=== PATIENT | female | born 1940 | race Caucasian/White ===

== ENCOUNTER 2019-06-10 22:21 | Inpatient (IN) | payer OTHER, BC ==
[~2019-06-10] VITALS: Ht 162.6 cm; Wt 47.3 kg
[2019-06-11 02:08] VITALS: BP 157/61
--- NOTE | 2019-06-11 02:44 | NUR ---
06/10/19 at 2205. Pt. received from [facility] via non-emergent ambulance. Pt. transferred from [facility] to bed with assist of 3. Pt. is weak and states that she has not walked in 30 days. Pt. was then assisted to [facility] with assist of 2. Pt.'s body was limp while we were attempting to transfer her. She would not follow commands either. We sat pt. back on bed to start over. Simple directions given and countdown done before second attempt to lift patient and transfer to BS. Pt. was moderate assist with 2 and followed directions better with second attempt. Pt. was anxious, angry, labile, hostile, and uncooperative at times during assessment. She signed consent form for treatment but states, "I'm leaving here tomorrow"! Pt. was angry that she did not have a TV and angry that she did not have a private room. She states that the addiction social worker at promised her these things. Overall policies of unit explained to patient. Dr. Lovett called and notified of patient's admission and behaviors. Orders given for Ativan 0.5 mg. PO x1 now, Remeron 30mg. at hs, and Tramadol 25 mg. po prn q 8 hrs. All 3 of these medications given to patient. She continued to make multiple demands and would at times yell down the avendaño making these demands. Patient in next bed complained of noise patient was making. Another discussion was had with patient regarding being cooperative in group setting, letting medications help with moods/behaviors, and try to get some sleep. Pt. finally appeared to be sleeping at approximately 0230. Pt. c/o pain to both sides of her neck and numbless to both hands but states that these are long-standing conditions and not a new onset or worsening. Assessment completed and patients appears to be sleeping with eyes closed and respirations even and non-labored. NO signs or symptoms of distress noted.
[2019-06-11] MEDS ORDERED: TRAMADOL 50 MG50 MG PO (03:39)
[2019-06-11] MEDS ORDERED: CYMBALTA30 MG PO (03:40)
[2019-06-11] MEDS ORDERED: ATIVAN0.5 M1 PO ×2 (03:41→03:43)
[2019-06-11] MEDS ORDERED: REMERON30 MG PO (03:44)
[2019-06-11] MEDS ORDERED: NORVASC10 MG PO (03:45)
[2019-06-11] MEDS ORDERED: LIPITOR 40 MG T40 M1 PO (03:46)
[2019-06-11] MEDS ORDERED: BUSPIRONE HCL10 MG PO ×2 (03:47→03:48)
[2019-06-11] MEDS ORDERED: COLACE100 MG PO (03:47)
[2019-06-11] MEDS ORDERED: CELEBREX 200 M200 M1 PO (03:49)
[2019-06-11] MEDS ORDERED: ARTIFICIAL TEAR1510 OPHTHALMIC (03:50)
[2019-06-11] MEDS ORDERED: DEPAKOTE 250MG250 M1 PO (03:51)
[2019-06-11] MEDS ORDERED: PEPCID20 MG PO (03:54)
[2019-06-11] MEDS ORDERED: VITAMIN D31 ML PO (03:54)
[2019-06-11] MEDS ORDERED: FOLIC ACID1 MG PO (03:56)
[2019-06-11] MEDS ORDERED: FEOSOL325 M1 PO (03:56)
[2019-06-11] MEDS ORDERED: PROBIOTIC1 EAC7 PO (03:57)
[2019-06-11] MEDS ORDERED: PRINIVIL20 M1 PO (03:59)
[2019-06-11] MEDS ORDERED: TOPROL XL25 MG PO (04:00)
[2019-06-11] MEDS ORDERED: CARAFATE1 GM PO (04:01)
[2019-06-11 07:26] VITALS: BP 162/53
--- NOTE | 2019-06-11 12:17 | NUR ---
Sw spoke with Roland son and completed the intake assessment and TP. This included social HX. Pt has lived at [facility] in [facility] for a few years and spent the last 30 days at [facility]. Pt is not allowed ot return to [place]. Pt has [place] medicaid and it was reported that she wants to go to an AL, and have $3000 for this. Pt does not do well with roommates. pt scored 14/30 on the SLUMS and a SLIME is being ordered.
--- NOTE | 2019-06-11 15:07 | NUR ---
UPON INITIAL APPROACH THIS AM WAS SITTING INDAYRROM IN WC WITH HEAD ON TABLE AND HANDS COVERING HEAD-INITALLY REFUSING TO [facility] NURSING STAFF WITH ATTEMPTS TO COMMUNICATE WITH HER-REFUSES TO EAT BREAKFAST OR EVEN HOLD HEAD UP FOR ASSESSMENT-VS OBTAINED AND ARE WNL. APPROX 5 MINUTES LATER APPROACHED WITH AM MEDICATIONS AND AGAIN REFUSES TO HOLD HEAD UP OR [facility]LE[facility] NURSING BUT DID STATE "NO I DON'T WANT THEM" DID AGREE TO GO TO MD OFFICE APPROX 10 MINUTES LATER AND SPOKE WITH MD-AT 1000 REPORTED NECK PAIN RATED A 8 ON 1-10 SCALE. ULTRAM 25 MG GIVEN ALONG WITH 0900 CELEBREX-REQUESTING "MY NERVE MEDICINE" I AM ABOUT TO JUMP OUT OF MY SKIN. ATIVAN 0.5MG GIVEN PO PRN AT APPROX 1015
--- NOTE | 2019-06-11 18:00 | NUR ---
HAS BEEN VISIBLE IN DAYROOM THROUGHOUT MAJORITY OF SHIFT- MORE COOPERATIVE DAY HAS PROGRESED AND WORKED AT [facility] WITH BOTH PT AND OT TODAY- REQUIRES ASSIST OF 1 STAFF TO PIVOT TRANSFER FROM WC TO COMMODE/BED. DID EAT WELL FOR LUNCH AND DINNER SINCE APPROX 1000 HAS TAKEN MEDS SCHEDULED. REPORTS IMPROVED NECK PAIN AFTER AM ULTRAM 25 RATING PAIN A 2-3 AT 1200. DID DO RT GROUP-ASKED THIS RN DURING 1;1 "DO MY CHILDREN KNOW I AM HERE" AND STATES "THE ONLY REASON I AM HERE IS BECAUSE I NEEDED TO GET OUT OF THAT PLACE" LABILE MOOD. RESPONSES ARE ABRUPT/DEFENSIVE AT TIMES BUT RELEVENT TO QUESTION ASKED.
[2019-06-11 19:30] VITALS: BP 128/50
[2019-06-12 06:33] LABS: HEMATOCRIT 30.6 % (37.0-47.0); MCH 28.9 pg (26.0-34.0); MCHC 32.6 g/dL (28.0-37.0); MCV 88.8 fL (80.0-100.0); PLATELET COUNT 337 thou/uL (150-400); RBC 3.45 mil/uL (4.20-5.00); RDW 17.3 % (10.5-14.5); WBC 5.9 thou/uL (4.0-11.0)
[2019-06-12 06:47] LABS: CALCIUM 8.5 mg/dL (8.5-10.1); POTASSIUM 4.5 mmol/L (3.5-5.1)
--- NOTE | 2019-06-12 07:02 | NUR ---
ASSUMED CARE ON 06/11/19 @ 1900, SITTING IN THE DAY ROOM. COOPERATED WITH ASSESSMENT AND COMPLIANT WITH MEDS. SLEPT 7.4 HOURS OVERNIGHT.
[2019-06-12 07:30] VITALS: BP 153/70
[2019-06-12 08:32] LABS: ABSOLUTE NEUTROPHILS 2.8 thou/uL (1.4-8.2)
[2019-06-12 08:33] LABS: PLATELET ESTIMATE NORMAL
--- NOTE | 2019-06-12 08:48 | NUR ---
RT progress note- Patient exhibits poor attention/concentration and does not allow staff to interact with him for long periods of time. Attempts to intervene from wandering/exit seeking behavior include reading a bible, working puzzles, and listening to music, none of which patient tolerates for more than a few minutes at a time. He continues to only verbalize a few words at a time during interaction.
--- NOTE | 2019-06-12 13:45 | NUR ---
PATIENT LYING IN BED REFUSES MEDICATION, STATES "I DON'T NEED MY MEDICATION, I WON'T LIVE LONG". I AM NOT GONNA EAT AND WILL SOON". AFTER WIRTER ASKS WHAT HAS HER SO UPSET PATIENT STATES SHE IS MAD. PA=TIENT STATES "I DO NOT LIKE IT HERE". WILL CONTINUE TO OBSERVE.
--- NOTE | 2019-06-12 14:10 | NUR ---
Violet contacted [facility] and spoke with the SW in the AL to confirm her previous placement there. Pt now needs SNF.
--- NOTE | 2019-06-12 18:52 | NUR ---
1819 PATIENT C/O BEING NERVOUS, ATIVAN 0.[address] DELGADO HERE AND MATCH UP PERSON NOTIFIED DR. PATIENT SPOKE WITH SON AND THEN THREW PHONE. PATIENT STATES NERVES ARE ALL OVER AND FEELS LIKE THEY ARE GONNA EXPLODE. PATIENT SITTING IN GERICHAIR AT THE TIME. WILL CONTINUE TO OBSERVE.
[2019-06-12 19:13] VITALS: BP 135/46
[2019-06-13 01:07] LABS: GLYCOHEMOGLOBIN (HGB A1C) 5.4 % (4.8-5.6)
[2019-06-13 01:14] VITALS: BP 135/46
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
--- NOTE | 2019-06-13 08:59 | NUR ---
0700 ASSUMED CARE OF PATIENT, PATIENT SITTING IN DAYROOM. MEDICATION TAKEN WHOLE IN YOGURT WITHOUT DIFFICULTY. DENIES OTHER NEEDS.
[2019-06-13 10:42] VITALS: BP 147/59
--- NOTE | 2019-06-13 13:59 | NUR ---
Sw met with pt and she stated that she understood she needd to be in rehab and then likely LTC. She wanted to stay in [facility], SW sent referal to [facility], and [facility] [place], and [facility].
--- NOTE | 2019-06-13 18:06 | NUR ---
NO C/O BEING NERVOUS FROM PATIENT. PATIENT STATES "I AM GONNA TRY TO DO MY BEST AND GET BETTER". PATIENT HAS BEEN CALM AND COOPERATIVE. PATIENT EATING MEALS AND NOT REFUSING MEDICATIONS. PATIENT SITTING IN DAYROOM WATCHING TV AND DOING CROSSWORD PUZZLES FOR ENTERTAINMENT. SAFETY PRECATIONS IN PLACE, WILL CONTINUE TO MONITOR.
[2019-06-13 19:27] VITALS: BP 139/61
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
[2019-06-13 23:36] VITALS: BP 139/61
--- NOTE | 2019-06-14 02:12 | NUR ---
Assumed care of patient at change of shift. Pt. in W/C sitting at a table in dining room. She was watching TV and other patients but was not interacting with peers or staff. She would answer questions when asked. Assessment completed. Pt was calm and cooperative. She is a/oX4. Pt. was discussing her discharge plan in detail. She took medications in applesauce and then followed this with cup full of water. No coughing or choking noted after swallowing.
--- NOTE | 2019-06-14 09:23 | NUR ---
ASSUMED CARE AT 0700 THIS MORNING. SHE WAS IN BED AND GOTTEN UP BY [employer]. SHE CONTINUES TO BE CONTROLLING, IRRITABLE. SHE EXPECTS STAFF TO DO EVERYTHING FOR HER, EVEN FEED HER. STAFF INFORMED HER SHE NEEDS TO FEED HERSELF, WHICH SHE DID. SHE WAS COMPLAINING THAT NIGHT STAFF IS TAKING HER THINGS IN THE NIGHT. SHE COMPLAINED THEY TOOK HER GLASSES. THERE IS A PAIR OF GLASSES AT THE NURSES STATION BUT THE PT. STATES THESE ARE NOT HERS. WILL CONTINUE TO BE ON THE LOOK OUT FOR THE GLASSES OF HER. SHE TOOK HER MEDICATIONS WITHOUT DIFFICULTY.
[2019-06-14 09:47] VITALS: BP 188/63
[2019-06-14 11:59] VITALS: BP 188/63
[2019-06-14 12:07] VITALS: BP 188/63
[2019-06-14 12:22] VITALS: BP 188/63
--- NOTE | 2019-06-14 17:12 | NUR ---
SW met with patient 1:1 in lieu of group due to COVID-19 restrictions. Patient was responsive and engaged. She expressed being upset because she believes someone stole her glasses and staff has been unable to find them. She expressed some worry about where she would go upon discharge because she is weak and has loss much of her strength after being hospitalized for one month. SW provided support and assured her discharge plans would be discussed with her prior to her discharge.
[2019-06-14 19:34] VITALS: BP 128/48
--- NOTE | 2019-06-15 00:33 | NUR ---
Assumed care of patient this pm shift. Patient in good spirits but has appare ntly misplaced her reading glasses. Patients son called and requested that [facility] try to find her glasses. RN got patients prescription glasses out of the storage locker. Patient was very pleased. Patient states she has pain in her low back and in her neck on both sides. Patients assessment shows clear breath sounds, active bowel sounds, and s1 s2 heard with auscultation. Patient had a large bm this evening. Patient is alert and oriented x4. We will continue to monitor.
[2019-06-15 07:33] VITALS: BP 145/68
--- NOTE | 2019-06-15 10:07 | NUR ---
Assumed care at 0700. Ate breakfast, took meds in softened ice cream. Wants Senna-Docusate held for tomorrow AM due to abdominal cramping with BM. Pt. denies SI/HI/AH/VH. No delusional content to speech. She is polite. Pt. says she stills feels anxious and wishes she could have Ativan 1 mg. twice a day for her anxiety. Lungs clear, HR regular, no ankle edema.
--- NOTE | 2019-06-15 13:29 | NUR ---
Ate lunch w/o difficulty. Wishes she had more veggies to eat. Pleasant, cordial, polite. No offered issues/complaints. Able to verbalize concerns in an articulate way to make her needs known.
--- NOTE | 2019-06-15 18:00 | NUR ---
Pt. wants Immodium for loose stools. Has had total of 2 reported soft mushy stools. Wants to be transferred to [facility]. Pleasant, compliant with meds. Call placed to Dr. Reid at 1800 to request Immodium.
[2019-06-15 19:58] VITALS: BP 120/47
[2019-06-16 00:54] VITALS: BP 120/47
--- NOTE | 2019-06-16 01:40 | NUR ---
PATIENT IS A/0X3. SHE SITS IN A WC AND NEED 1-2 PEOPLE TO ASSIST HER. SHE HAS BEEN C/O NECK/SHOULDER PAIN THAT WAS RELIEVED WITH TYLENOL 1000MG WITH HS PILLS TONIGHT. DICLOFENAC CREAM TO NECK AND SHOULDERS EASED PAIN THAT WAS 5/10. PT HAS BEEN ASSISTED TO HER BSC TO VOID URINE WITHOUT ISSUE. PATIENT IS SLEEPING AT THIS TIME. SHE IS VERY VOCAL AND ABLE TO VOICE HER NEEDS. BED IN LOW POSTION AND BED ALARM ON. CONTINUING TO MONITOR.
[2019-06-16 07:30] VITALS: BP 131/58
--- NOTE | 2019-06-16 08:07 | NUR ---
Assumed care at 0700. Pt. up ready for and started eating breakfast. she tends to want to eat by herself.
[2019-06-16 16:45] VITALS: BP 131/58
--- NOTE | 2019-06-16 16:51 | NUR ---
SW followed up on referrals faxed for SNF. [facility] is not accepting new admissions due to COVID-19. DG declined stating unable to meet her needs. Left message with Kelp Gatherer Ale[facility] at [facility] asking for return call regarding referral decision.
--- NOTE | 2019-06-16 17:05 | NUR ---
Pt. wants Bentyl for her abdomen to help with abdominal cramps. She admitted to being more at ease about her upcoming housing arrangements after talking with psychiatrist. She is fearful about next door pt. coming in her room and taking her glasses/dentures which are hidden in locations of pt's. choosing.
--- NOTE | 2019-06-16 17:13 | NUR ---
CAROLE received a return call from Laceworker Alejo with [facility]. He informed he did not receive referral. CAROLE faxed referral directly to Alejo for consideration.
--- NOTE | 2019-06-16 17:51 | NUR ---
SW faxed referrals to [facility], [facility], and [facility].
[2019-06-16 19:19] VITALS: BP 120/54
[2019-06-16 20:00] VITALS: BP 120/54
[2019-06-17 09:46] VITALS: BP 144/55
[2019-06-17 10:45] VITALS: BP 108/40
--- NOTE | 2019-06-17 11:41 | NUR ---
RT progress note- Sadia prefers to be independent in leisure at this time. She tolerates social interaction from staff only. She requests word searches daily. She is very discharge focused and speaks about wanting to settle in to her new home rather than being hospitalized. She does not display any adverse behaviors during RT interaction.
--- NOTE | 2019-06-17 12:10 | NUR ---
Pt. assessed at approximately 0940. States she is upset because she feels like noone cares for her here. When asked why she stated that she felt she wasn't listened to when asking to change lunch menu. Alert and orientated X4. States she attempted to harm herself d/t not wanting to stay at long term d/t COVID. Denies SI/HI. Alert and cooperative. Breath sounds clear t/o. Reg HR auscultated. Color pale pink with brisk capillary refill and palpable peripheral pulses. Active bowel sounds over soft, rounded abdomen. Small amt erythema between buttocks, paste applied. Placed on bed to look at buttocks, able to assist with R side, L side weak. Pt. states she is weak d/t stroke in the past. 1146 Pt. found outside door lying on floor by therapist Arpita Garcia. Pt. states she was trying to close door to room when she slipped out of WC and fell on floor. Hematoma to left scalp 1 cm X2 cm. Placed back in WC. VS as recorded. Remains alert and orientated. No s/o distress. Brought back to dining room. Working on word puzzles. Dr. Gamino and Dr. Lovett notified, here assessing pt. Gave ice pack to place on hematoma. 1220 Sitting at table eating lunch. No s/o distress.
--- NOTE | 2019-06-17 14:07 | NUR ---
Pt was denied at [facility], after a lengthy discussion with their admissions coordiantor.
--- NOTE | 2019-06-17 14:54 | NUR ---
SW sent updates to [facility]
[2019-06-17 16:16] VITALS: BP 118/52
[2019-06-17 19:56] VITALS: BP 128/37
--- NOTE | 2019-06-18 00:25 | NUR ---
Pt. has small bump and bruise on left side of forehead that is approximately 2 cm x 3cm and raised. At start of shift patient denied pain. No nuerological symtpoms noted. Pt. denies any new symptoms to hands or feet. Pt. was in W/C in the dining room. She can move W/C with her feet. She cannot hold anything long distance.
--- NOTE | 2019-06-18 00:53 | NUR ---
Pt. wheeling herself in W/C using her legs. She sits forward in chair with an "odd" posture. She has scoliosis and kyphosis that is visible. Pt. c/o pain. Biofreeze applied to neck and upper back and gave patient some relief. She continues to c/o mild pain of
[2019-06-18 05:57] VITALS: BP 128/37
[2019-06-18 07:26] VITALS: BP 121/57
[2019-06-18 08:10] VITALS: BP 121/57
--- NOTE | 2019-06-18 08:18 | NUR ---
PT SITTING OUT IN DINING ROOM. PT ABLE TO FEED SELF. PT COMPLAINED OF NECK PAIN AND LOWER BACK PAIN OF 10. PT STATED SHE HAS ISSUES WITH HER BACK. PT REQUESTING MEDICATION FOR HER STOMACH, BENTYL. PT ABLE TO TAKE MEDS WHOLE IN YOGART.
--- NOTE | 2019-06-18 12:37 | NUR ---
Sw met with pt and she described feeling frustrated that sh was still here. Violet then sent referrals to [facility], [facility], and Samira LA[facility]
--- NOTE | 2019-06-18 12:45 | NUR ---
Violet sent referral to [facility] , [facility] too
--- NOTE | 2019-06-18 14:10 | NUR ---
CALLED DR. SIDHU ABOUT BENTAL MEDICATION. FOUND ON [facility] SHEET IT WAS PRN FOR CRAMPING.
--- NOTE | 2019-06-18 18:12 | NUR ---
ADM BENTYL 20MG PO FOR COMPLAINTS OF CRAMPING TO STOMACH.
[2019-06-18 19:31] VITALS: BP 146/62
--- NOTE | 2019-06-18 23:13 | NUR ---
Assumed care on 06/18/19 @ 19:15, seated in the day room socializing with peers and watching tv. cooperaed with assessment. Hrrr, Lungs cta bilat, abd N b.s. denies bm today wants laxative. Scheduled stool softener provided with HS medications. Trying to transfer self without assistance to toilet. Reminded by staff of being a fall risk and needing to let staff assist her and she fussed at staff and was uncooperative with safety protocol. Assisted back to bed x2 assist due to uncooperative behavior of patient. Diclofenase cream applied to back and neck for pain. In bed, eyes closed, respirations even and unlabored, bed in low position, bed alarm set.
--- NOTE | 2019-06-19 07:34 | NUR ---
ADM BENTYL 20MG PO FOR COMPLAINTS OF CRAMPING TO ABD.
--- NOTE | 2019-06-19 08:25 | NUR ---
PT SITTING OUT IN DINING ROOM. PT ABLE TO TAKE MEDS WITH YOGART. PT STATED SHE HAS SOME PAIN TO RT SIDE OF NECK AND LOWER BACK OF 10 ON 1-10 SCALE. PT HAS NOT OTHER COMPLAINTS AT THIS TIME.
[2019-06-19 08:30] VITALS: BP 147/66
--- NOTE | 2019-06-19 10:10 | NUR ---
PT IN ROOM LYING DOWN IN BED. PT WANTING TO TALK TO THE NURSE. PT STATED SHE WANTED THE NURSE TO CHECK FOR IMPACTION. PT STATED SHE WILL DO IT HERSELF IF SHE HAD A GLOVE. PT STATED SHE HAD A COUPLE OF SMALL STOOLS LAST NIGHT. PT UPSET AND STATED SHE WILL HERE, ENCOURAGED PT THAT SHE WILL NOT THAT THIS IS TEMP. STAY. PT NOT VERY HAPPY WITH BEING HERE, FEELS LIKE HER INDEPENDANCE IS LESS BEING HERE. PT ABLE TO PROPEL SELF IN W/C, PT NEEDS MINIMAL ASSIST TO BSC OR TO W/C.
--- NOTE | 2019-06-19 12:04 | NUR ---
PT JUST GOT TO DINING ROOM TO EAT. PT STATED SHE IS HAVING A BM AT THIS TIME. PT ASSISTED TO ROOM WITH STAFF TO USE BSC.
--- NOTE | 2019-06-19 12:06 | NUR ---
CAROLE sent referral to [facility]
--- NOTE | 2019-06-19 12:36 | NUR ---
ADM BENTYL 20MG PO FOR COMPLAINTS OF CRAMPING. PT ALSO HAD LARGE SOFT BM WITH STAFF PRESENT.
--- NOTE | 2019-06-19 15:08 | NUR ---
PT SITTING IN DINING ROOM CRYING. PT STATED THAT HASN'T SEEN HER OR DATA STORAGE SPECIALIST. PT STATED SHE DOESN'T WANT TO GO TO [place], [place].
--- NOTE | 2019-06-19 15:45 | NUR ---
PT STILL UPSET. DR. DELGADO IS TALKING WITH HER NOW.
--- NOTE | 2019-06-19 16:13 | NUR ---
TRIED TO USE FIND A WORD FOR DISTRACTION. PT REFUSED AT THIS TIME.
--- NOTE | 2019-06-19 16:48 | NUR ---
PT NOW WANTING TO HAVE PAIN MEDICATION. PT STATED THAT TYLENOL WOULDN'T TOUCH A FLEA. MENTIONED ULTRAM, PT STATED THAT IT DIDN'T WORK. EDUCATED PT ON CONSTIPATION ISSUES WITH NARCOTICS.
--- NOTE | 2019-06-19 18:12 | NUR ---
JOSE GUADALUPE HAD ANOTHER BM IN BSC. THE STOOL WAS SLIMMY. PT WANTING SOMETHING FOR HER BOWELS AND SHE COMPLAINING OF CRAMPING. EDUCATED THAT SHE WAS GIVEN BENTYL AND SHE STATED THAT SHE JUST WANTED THIS SALES SERVICE SUPERVISOR TO CALL FOR SOMETHING FOR TONIGHT.
[2019-06-19 19:32] VITALS: BP 127/47
--- NOTE | 2019-06-20 00:48 | NUR ---
Care assumed of patient at 1915: Patient seated in dayroom in w/c at start of shift. Appears to be interacting well with peers. Alert and oriented x4. Patient denies SI/HI/AH/VH. Denied depression and anxiety. Reported pain to lower back at start of shift. Patient took HS medication whole in yogurt without difficulty. Patient ate 100% HS snack. Patient asked staff to go to bed at a reasonable hour. 2 staff assisted patient to her room. Transferred her to bedside commode with mod assist x2. Gait unsteady, weakness observed to left side. Continent of bladder. Patient then became demanding and disrespectful to staff. Patient angry because she can be "independent". Patient spilled her cup of water by dropping it on the floor. Yelled at staff stating it was their fault, all while refusing further assist. Then demanded to speak with nurse. Nurse arrived to patient's room stating staff was being "mean". Patient then stated she needed to soak her dentures and rinse out her mouth. Nurse collected a cup of water, denture cup and denture tab. Patient stated that she has to go to the bathroom so she can spit in the toilet. Patient was already in bed and encouraged her to allow nurse to assist her. Patient became angry, stating she is independent and to just let her do it. Patient became hostile and then threw her dentures at the nurse. A few minutes later, staff responded to bed alarm sounding. Patient was attempting to get out of bed independently. Patient stated "I don't need any help". Nurse staff x2 stood next to patient as she attempted to stand and transfer self to her w/c. Patient almost fell x2. After several minutes, patient was able to propel her w/c toward bathroom, continuing to refuse any assist. Patient then started to yell because staff had used one of her towels to clean up the water she spilled. After approximately 15 minutes of her yelling and attempting to complete ADLs independently, patient allowed staff to assist her. Patient then dropped her dentures in the denture cup on the floor, breaking the denture cup. This she also blamed on nurse. Patient did make a statement during her anger about how she needs to be able to complete something independently. It is believed that patient is frustrated due to requiring some level of assist with most ADLs and is taking out frustrations on staff present. Patient was able to be assisted to bed with mod assist x2. Once in bed, she refused any other assistance from staff and yelled to "get out". Call light is within reach, bed alarm activated. Patient appears to be sleeping at this time.
[2019-06-20 08:31] VITALS: BP 157/71
--- NOTE | 2019-06-20 10:07 | NUR ---
ASSUMED CARE AT 0700 THIS MORNING. PT. IS LYING IN BED, REFUSING ALL CARE. THIS RN APPROACHED HER, SHE C/O PAIN IN LEGS. THIS RN INFORMED HER I HAD CELEBREX, DICLAFENAC CREAM AND TYLENOL FOR HER. SHE BECAME BELIGERANT AND TOLD THIS RN TO "GET OUT OF HERE, I'M NOT TAKING ANYTHING!!" THIS RN ATTEMPTED TO DIRECTOR PRODUCT HER INTO TAKING HER MEDICATIONS, BUT SHE WAS UNCOOPERATIVE. PT. HAD BM. STAFF CHANGED HER, BUT SHE DID NOT LIKE STAFF "MESSING" WITH HER.
[2019-06-20 11:10] VITALS: BP 157/71
--- NOTE | 2019-06-20 14:07 | NUR ---
Eveline sent referrals to [facility] and [facility], eveline also sent a referal for [place] to complete a [place] medicaid application. Trish Johnson is still considering.
--- NOTE | 2019-06-20 15:03 | NUR ---
Violet sent referral to [facility]
[2019-06-20 19:25] VITALS: BP 126/60
--- NOTE | 2019-06-20 21:03 | NUR ---
Care assumed on patient at 1915. Patient is sitting inthe day room at the start of shift. Cooperative and pleasant upon approach, but quickly became tearful and endorsed depression speaking of her chronic pain and the unknowns of whether she will discharge, and to where. Massage (neck) provided for comfort, reducing pain from 10/10 to 6/10 per patient report. Patient is taken to her room at 2014 per her request and HS med administered. Assisted patient to bedside commode with no results. Massage again provided in conjunction with Diclonfenac gel, reducing pain further to 4/10. Patient assisted to bed and is resting comfortably at 2100.
[2019-06-21 07:42] VITALS: BP 150/64
[2019-06-21 09:40] VITALS: BP 150/64
--- NOTE | 2019-06-21 11:15 | NUR ---
1100 RESUMMED CARE FROM OVERNIGHT SHIFT THIS AM, PATIENT IN DAY ROOM WAITING FOR BREAKFAST. PATIENT ATE BREAKFAST TOOK MEDICATION WITHOUT INCIDENCE. PATIENT COMPLAINED THAT RT HAND WAS NUMB I TOLD PATIENT THE HOSPIALIST WILL CHECK ON HER. PATIENT IS VERY SOMATIC ABOUT SYMPTOMS AND WANTS YOU TO HELP HER ALL THE TIME. PATIENT DENIES SI/HI/AH/VH AT PRESENT PATIENTS ABDOMEN SOFT ROUND. BOWEL SOUNDS PRESENT LUNGS CLEAR WILL CONTINUE TO MONITOR PATIENT FOR BEHAVIORS AND SAFETY.
[2019-06-21 19:21] VITALS: BP 125/52
[2019-06-21 19:30] VITALS: BP 125/52
[2019-06-21 19:38] VITALS: BP 125/52
--- NOTE | 2019-06-22 04:02 | NUR ---
06-21-19 CARE TRANSFERED AT 1914; 1954 PT SITTING IN W/CHAIR IN DAY ROOM, NOTED PT SPILLED TWO GLASSES OF ICE WATER IN DAY ROOM. PT AAOX2, PT WAS COOPERATIVE, BUT PRESENTED DEMANDING WHEN REQUESTING ANOTHER GLASS OF ICE WATER. PT RATED PAIN IN NECK AT 10 ON 0-10 SCALE. DURING MEDICATION ADMINISTRATION PULLED PRN TYLENOL ALSO; APPLIED DICLOFENAE SODIUM TO NECK IN DAY ROOM AND BACK IN PT ROOM; ASSISTED PT ON TOLIET, NOTED YELLOW, CLEAR URINE; ASSISTED DOUGHNUT BATTER MIXER IN CHANGING PT BRIEF AND REPOSITION PT INTO COMFORTABLE POSITION. PT REQUESTED A GLASS OF WATER, RETRIVED A SMALL GLASS OF WATER AND PT BECAME AGITATED AND DEMANDING STATING SHE WANTED A BIG GLASS OF WATER WITH ICE. OFFER PT THE GLASS OF WATER WHILE IN BED. PT REFUSED AND STATED SHE WILL BE SPEAKING WITH THE AUTHORITIES AND THEY WILL ARREST THIS RN. PLEASE REFER TO NURSING INTERVENTIONS FOR MORE DETAIL INFORMATION. ZERO ACUTE DISTRESS NOTED.
[2019-06-22 07:34] VITALS: BP 157/62
--- NOTE | 2019-06-22 10:18 | NUR ---
TEARFUL DURING WITH THIS RN STATING "THEY WON'T GIVE ME ANY WATER BECAUSE I SPILL IT-AND THEY WON'T TAKE CARE OF WHAT I NEED" WHEN OFFERED WATER STATES "I DON'T WANT IT" WHEN ASKED WHAT IT IS SHE NEEDS STATES "I DON'T KNOW RIGHT NOW" HAS CONTINUED TO HAVE DELUSIONS OF PERSECUTION INSISTING THAT NURSES AIDES ARE IGNORING HER DESPITE THIS RN WITNESSING THE OFFERING TO HELP
[2019-06-22 19:20] VITALS: BP 155/73
--- NOTE | 2019-06-22 23:39 | NUR ---
Care assumed of patient at 1915: Patient seated in w/c in her room at start of shift. Patient started to make demands and complain once nurse introduced self. Patient alert and oriented x4. Reported "some" depression and anxiety. Would not rate and only stated "does it really matter". Denies SI/HI/AH/VH. Reports pain to neck and lower back. Avoiding eye contact. Irritable, frustrated and agitated. Patient took HS medication whole with yogurt. Ate 100% HS snack but demanded nurse fed it to her. Then reported that nobody fed her all day but followed up that statement with the fact that she had cereal, banana and cobos for breakfast, and meatloaf with sides for lunch. Required max assist x2 for transfer to bedside commode then to bed. Patient unsteady and weak. Told staff "you are supposed to do it all for me". Patient would not assist with standing, dressing or any ADLs. Patient disrespectful and demeaning. Educated patient on treating others with respect and saying please and thank you. Patient also told nurse that she needed to be discharging to a rehab facility and not a nursing home facility. Education provided on therapy services at an SNF. Patient then told nurse to "get out, you don't know anything!". Patient stated everyone was mean and refusing to help her, after this nurse alone had spent the last 20 minutes in her room assisting her with ADLs. Patient fell asleep without difficulty and has been resting quietly since.
[2019-06-23 07:20] VITALS: BP 114/62
--- NOTE | 2019-06-23 11:55 | NUR ---
Pt was denied at [facility] due to behaviors.
[2019-06-23 13:15] VITALS: BP 114/62
--- NOTE | 2019-06-23 14:20 | NUR ---
Pt was denied at [facility], no female beds, and [facility] does not take medicaid pending. Sw sent the referral to [facility] and they would like to see the medicaid application and 3 months of bank statements, and referral was sen to [facility].
--- NOTE | 2019-06-23 14:32 | NUR ---
1430 RESUMMED CARE FROM OVERNIGHT SHIFT THIS AM, PATENT SITTING IN DAY ROOM QUIET. PATIENT ATE BREAKFAST TOOK MEDICATION WITHIUT INCIDENCE. THEN ABOUT 10:[address] DELGADO FOR PAIN MEDICATION WHILE IN THE DAY ROOM. I TOLD DR DELGADO I PUT A LIDOCAINE PATCH ON PATIENTS NECK AT 0915 AT SHE HAS BEEN DRUG SEEKING. PATIENTS ABDOMEN SOFT ROUND BOWEL SOUNDS PRESENT PATIENTS LUNGS CLEAR. I GAVE PATIENT COLORING TO DISTRACT HER FROM ASKING FOR PAIN PILLS MEDICATION. PATIENT DENIES SI/HI/AH/VH AT PRESENT UA WAS COLLECTED AT 1405 FOR UA/UC. WILL CONTINUE TO MONITOR PATIENT FOR SAFETY AND BEHAVIORS.
[2019-06-23 14:33] LABS: URINE BILIRUBIN NEGATIVE (Negative); URINE BLOOD TRACE (Negative); URINE CLARITY SL CLOUDY; URINE COLOR YELLOW; URINE GLUCOSE-RANDOM* NEGATIVE (Negative); URINE KETONES NEGATIVE (Negative); URINE NITRITE-REFLEX NEGATIVE (Negative); URINE PROTEIN (DIPSTICK) TRACE (Negative); URINE SPECIFIC GRAVITY 1.015 (1.005-1.035); URINE UROBILINOGEN 0.2 E.U./dl (0.2-1.0)
[2019-06-23 14:35] LABS: URINE LEUKOCYTES-REFLEX 3+ (Negative)
[2019-06-23 14:49] LABS: CASTS None Seen /LPF (None Seen); CRYSTALS None Seen /LPF (None Seen); SQUAMOUS 0-3 Few /LPF (0-3); URINE WBC-REFLEX >25 Many /HPF (0-5)
[2019-06-23 14:50] LABS: URINE RBC 0-2 Rare /HPF (0-2)
--- NOTE | 2019-06-23 16:47 | NUR ---
SW met with pt and she requested 3 months of bank satements from her [employer] via telehone . these will be faxed to this worker. Pt also completed her [place] medicaid applicaiton and signed a consent which was scanned and returned to [facility].
[2019-06-23 19:31] VITALS: BP 126/42
--- NOTE | 2019-06-23 21:49 | NUR ---
Care of patient assumed at 1915. Patient is sitting in day room conversing with a peer. Pleasant upon approach. Cooperative with assessment. Heart sounds normal, lungs CTA, BS present x 4. Patient reports that the lidocaine patch is working well, rating her pain at 4/10. Does endorse mild headache, which is aleviated by neck massage. Denies SI/HI. States she will llikely leave on Sunday and is worried about the continued prevelance of COVID in care facilities. Ate 100% of HS snack and took HS meds with yogurt to assist in swallowing. Assisted to bedside commode, and then to bed at 2129.
[2019-06-24 08:00] VITALS: BP 106/67
[2019-06-24 08:29] VITALS: BP 106/67
--- NOTE | 2019-06-24 08:30 | NUR ---
PT UP IN DINING ROOM TODAY. PT IN W/C. PT NEEDS ASSITANCE WITH CUTTING UP FOOD. PT STATED HER HANDS ARE NUMB AND DROPS THINGS EASILY. PT STATED SHE HAS PAIN TO SHOULDERS OF 10 ON 1-10 SCALE. PT STATED THE PAIN IS ALWAYS A 10. PT STATED SHE WANTS TO GO HOME. SHE ALSO STATED SHE WANTS TO SEE A DR. WHEN SHE GETS OUT OF HERE. PT ORIENTED PERSON, MONTH, AND BIRTHDAY. SHE THOUGHT SHE WAS IN [facility].
--- NOTE | 2019-06-24 15:25 | NUR ---
SW faxed the 3 months of bank statements and [place] medicaid application to [facility]. D/C could be Wed or TR pending acceptance.
--- NOTE | 2019-06-24 16:30 | NUR ---
ASSISTED PT TO BATHROOM IN ROOM BSC. NEEDED X2 ASSIST. ONE FOR TRANSFERS AND ONE TO HELP PULL DOWN PANTS. PT TRING TO VOID. UNABLE TO VOID BUT SMALL AMT. NO COMPLAINTS OF PAIN WITH VOIDING. PT DID GET SPONGE BATH ON BSC AND WASHED HAIR WITH SHOWER CAP.
[2019-06-24 19:46] VITALS: BP 140/99
[2019-06-24 20:05] VITALS: BP 140/99
--- NOTE | 2019-06-25 04:22 | NUR ---
06-24-19 CARE TRANSFERED AT 191, PT SITTING IN DAY ROOM, 2004 PT AAOX3, CALM, COOPERATIVE WITH ASSESSMENT, PT RATES PAIN IN THE NECK AT 10 0N 0-10 SCALE. PT DENIES SI/SH/HI. PT HAD ZERO DIFFICULTIES WITH MEDICATION ADMINISTRATION, REASSESSED PAIN AT 2237 PT STATED THAT THE TYLENOL HELPS, AND RATED PAIN AT 5 ON 0-10 SCALE. ASSISTED PT TO TOILET NOTED PT HAD MEDIUM SIZE BM BROWN HALF FORMED AND HALF LOOSE; NOTED A SMALL AMOUNT OF YELLOW URINE MIXED WITH BM. PT USED CROUCH AND RN RESPONDED AND PT REPORTED SHE WAS VERY RESTLESS BECAUSE OF THE PAIN AND WANTED A SHOT OF ATIVAN AND STATED "ATIVAN WORKS BEST FOR MY PAIN". PT WAS REPOSITION TO A MORE COMFORTABLE POSITION, PT BECAME A LITTLE ANGRY AND AGGRESSIVE WHEN I EXPLAINED THAT ATIVAN WAS NOT GENERALLY USED FOR PAIN. PT REQUESTED SHE BE REPOSITION AGAIN AND ADJUSTMENT MADE TO BED. PLEASE REFER TO NURSING INTERVENTIONS FOR MORE DETAIL INFORMATION. ZERO ACUTE DISTRESS NOTED.
[2019-06-25 07:49] VITALS: BP 131/67
[2019-06-25 08:15] VITALS: BP 131/67
--- NOTE | 2019-06-25 08:58 | NUR ---
PT UP IN W/C. PT ABLE TO PROPEL SELF IN CHAIR. PT STATED SHE HAS PAIN TO SHOULDERS OF 10 ON 1-10 SCALE. PT STATED SHE NEEDS TO GET OUT OF HERE AND SEE THE DR. PT NEEDS ASSIST WITH TRANSFERS X2. PT CONT. OF URINE. PT LIKES TO HAVE ICE CHIPS AND ALSO WATER WITH ICE. PT SOMETIMES SPILLS WATER DUE TO HERE HANDS AND FINGERS FELLS NUMB AND TINGLING. PT NEEDS ASSISTANCE WITH OPENING ITEMS ON FOOD TRAY, PT CAN FEED HER SELF.
--- NOTE | 2019-06-25 12:43 | NUR ---
Violet spoke with the busines [facility] at [facility] and they are not taking medicaid pending. Violet then sent referrals to [facility]. The followed up with Yohan left a VM,
--- NOTE | 2019-06-25 12:51 | NUR ---
Violet then sent referrals to [facility], [facility], and [facility] SNF then [facility]TC/[place] pending
--- NOTE | 2019-06-25 14:48 | NUR ---
VIOLET spoke with pt's son reported that pt already has [place] Medicaid. VIOLET called Bakari at [facility] to confirm this. Bakari stated that he was report this to the business office. Violet then met with pt to report this. Pt was complaining about the care she was getting and is motivated to d/c . Hopefully d/c will be tomorrow AM.
[2019-06-25 19:31] VITALS: BP 141/71
--- NOTE | 2019-06-26 05:30 | NUR ---
06-25-19 CARE TRANSFERED AT 1915; 2004 PT SITTING IN DAY ROOM IN W/CHAIR WITH EYES OPEN, SKIN W/D, PT AAOX1, PT CALM AND COOPERATIVE DURING ASSESSMENT, PT DID REPORT THAT PAIN IN NECK WAS 8 ON 0-10 SCALE AND REQUESTED TRAMADOL 50 MG TWICE DAILY; CONSULTED HCP AND HCP SPOKE WITH PT AND EDUCATED PT ABOUT THE INCREASING OF GABAPENTIN AND THAT IT MAY DAY A FEW WEEKS TO GET TO A THERAPUTIC LEVEL. DURING MEDICATION ADMIN. PT AGAIN NOTED THAT TRAMADOL WOULD HELP RELIEVE HER PAIN. PT REFUSED COLASE AND SENNA R/T HAVING THREE LOOSE STOOLS DURING AM; THIS WAS ALSO GIVEN IN REPORT. ASSISTED PT WITH TOLIETING AND NOTED YELLOW URINE AND SMALL LOOSE BM. NO SKIN BREAKDOWN NOTED IN [place] AREA. PLEASE REFER TO NURSING INTERVENTIONS FOR MORE INFORMATION. ZERO ACUTE DISTRESS NOTED.
[2019-06-26 06:22] LABS: ABSOLUTE NEUTROPHILS 5.6 thou/uL (1.4-8.2); BASOPHILS 0.4 % (0.0-2.0); EOSINOPHILS 4.2 % (0.0-3.0); HEMATOCRIT 39.7 % (37.0-47.0); HEMOGLOBIN 12.8 gm/dL (12.0-15.0); LYMPHOCYTES 14.9 % (24.0-44.0); MCH 28.4 pg (26.0-34.0); MCHC 32.3 g/dL (28.0-37.0); MCV 87.9 fL (80.0-100.0); PLATELET COUNT 315 thou/uL (150-400); POLYS 68.5 % (36.0-66.0); RBC 4.52 mil/uL (4.20-5.00); RDW 17.8 % (10.5-14.5); WBC 8.2 thou/uL (4.0-11.0)
[2019-06-26 06:33] LABS: CALCIUM 9.5 mg/dL (8.5-10.1); CREATININE 0.9 mg/dL (0.6-1.0)
[2019-06-26 07:36] VITALS: BP 119/61
--- NOTE | 2019-06-26 08:56 | NUR ---
CAROLE called and left VM with Bakari at Center requesting f/u about a possible d/c today.
--- NOTE | 2019-06-26 09:46 | NUR ---
Violet spoke with Bakari and they are contaacting the sons to verify the Medicaid. Pt does have medicaid but it hasnt been used for LTC yet.
--- NOTE | 2019-06-26 10:28 | NUR ---
Sw also sent referral to [facility]
[2019-06-26 10:49] VITALS: BP 119/61
--- NOTE | 2019-06-26 13:20 | NUR ---
1300 RESUMMED CARE FROM OVERNIGHT SHIFT THIS AM, PATIENT IN DAY ROOM WAITING BREAKFAST. PATIENT ATE WELL FOR BREAKFAST AND TOOK MEDICATION IN YOGURT. PATIENT ABDOMEN SOFT ROUND BOWEL SOUNDS PRESENT LUNGS CLEAR PATIENT DENIES SI/HI/AH/VH AT PRESENT. PATIENT HAS BEEN WORKING WITH OT/PT TO HELP STRENGTH OF LEGS. PY SUGGESTED PATIENT SIT IN A RECLINER DUE TO PATIENT LEANING TO SIDE. WE HAVE A PILLOW AND BLANKET ON THE SIDES OF HER WHEEL CHAIR TO HELP PATIENT SIT UP. PATIENT IS COOPERATIVE NO BEHAVIORS WILL CONTINUE TO MONITOR PATIENT FOR SAFETY AND BEHAVIORS.
[2019-06-26 19:40] VITALS: BP 94/48
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
[2019-06-27 07:00] VITALS: BP 106/48
--- NOTE | 2019-06-27 10:00 | NUR ---
Assumed care 0700. Pt. ate breakfast, compliant with medications. She has many needs. Two people are required to transfer her to commode. She seems weaker than last week on standing. She tends to lean to the left.
[2019-06-27 13:00] VITALS: BP 135/60
--- NOTE | 2019-06-27 14:10 | NUR ---
VIOLET met with pt and Dr jewell to dicuss the d/c plans. Pt was turned down by [facility] and [facility]. Violet then sent referrals to [facility] , [facility], [facility], and [facility]
--- NOTE | 2019-06-27 18:30 | NUR ---
Pt. usually has 10 for a pain rating. Says the pain patches do not stay on well. The pain cream sometimes helps a little. Her affect ranges from calm, anxious, pleasant to tense. Nurse conveyed to S.W. she wanted to talk with her and pt. was relayed the following information: that S.W. had put her case on priority, she was awaiting returned calls, that many places were not admitting new pts. related to the saab-19 virus and she would be kept informed of any new developments.
[2019-06-27 19:50] VITALS: BP 135/60
[2019-06-28 00:47] VITALS: BP 135/60
[2019-06-28 01:41] VITALS: BP 135/60
--- NOTE | 2019-06-28 04:44 | NUR ---
Pt. is sitting at table taking po meds without difficulty. Pills taken with water. No choking or coughing noted after swallowing. No signs or symptoms of pain or distress noted.
[2019-06-28 09:13] VITALS: BP 152/65
[2019-06-28 13:00] VITALS: BP 109/43
--- NOTE | 2019-06-28 16:50 | NUR ---
assumed care at 0700. Pt. was sad. She was polite to this conventional mortgage underwriter. She indicated she wished she were . She was encouraged to talk with hospitalist matty ritter. She declined some meds=tylenol, senna, pain ptches. Stated they don't help. She does not talk with peers. She feels defeated, sees herself as getting worse.
[2019-06-28 19:17] VITALS: BP 109/43
--- NOTE | 2019-06-29 05:20 | NUR ---
06-28-19 CARE TRANSFERED AT 1914; PT SITTING IN W/CHAIR IN DAY ROOM; 1949 PT AAOX3, CALM AND COOPERATIVE DURING NURSING ASSESSMENT. PT DENIES SI/SH/HI. PT RATES NECK PAIN AT A 10 ON O-10 SCALE, ASKED PT IF SHE WOULD LIKE TO TAKE HER TYLENOL PT STATED LOUDLY "NO, IT DOES NOT WORK, I KEEP TELLING THE DOCTOR". PT HAD ZERO DIFFICULTIES TAKING MEDICATION. ASK PT AGAIN IF SHE WOULD LIKE TO TAKE TAKE ANY TYLENOL, PT AGAIN STATED "NO, IT DOES NOT WORK". PLEASE REFER TO NURSING INTERVENTIONS FOR MORE INFORMATION. ZERO ACUTE DISTRESS NOTED DURING NURSING.
[2019-06-29 07:40] VITALS: BP 143/124
--- NOTE | 2019-06-29 16:17 | NUR ---
SW completed 1:1 with patient in lieu of group due to COVID-19 restrictions. Patient was engaged. She inquired about her d/c plan. SW informed of the skilled facilities in which referrals have been sent. Patient stated she did not want to go to [facility]. CAROLE informed this information would be passed to the primary SW. SW also inquired about speaking to her doctor, stating she had not seen him today. CAROLE informed RN who informed patient that she had spoken with him at length earlier today. Patient was adamant that she had not. LUIS Vargas informed SW she saw patient talking with AWILDA Sanford at length this date.
--- NOTE | 2019-06-29 17:05 | NUR ---
PATIENT HAS BEEN UP ON UNIT. SUFFERS FROM CONSTANT PAIN DISCOMFORT - VERY DIFFICULT TO ALLEVIATE. CLAIMS MEDICATIONS NON EFFECTIVE. EATS WELL - MAKES NEEDS KNOWN. DEPRESSED AND ANXIOUS OVER HER GENERALIZED PAIN. PATIENT ASSISTED TO BATHROOM - 2 PERSON ASSIST AND ATTEMPTS TO WORK WITH STAFF WHEN TRANSFERRING. MEDICATION COMPLIANT - TAKES PILLS WHOLE WITH EITHER APPLESAUCE OF YOGURT. PATIENT STATES BLADDER SPASMS AND ADVISED DR. TENORIO. PYRIDIUM ORDERED AT THIS TIME TO HELP WITH SPASMS.
[2019-06-29 19:48] VITALS: BP 120/40
--- NOTE | 2019-06-30 05:06 | NUR ---
06-29-19 CARE TRANSFERED 1914, PT SITTING IN DAY ROOM; 1954 PT AAOX2, COOPERATIVE WITH AGITATION DURING NURSING ASSESSMENT, PT REPORTED NECK PAIN AT A 10 ON O-10 SCALE. WHEN ASKED PT ABOUT TAKING HER TYLENOL TONIGHT SHE STATED "TYLENOL DOES NOT HELP AT ALL, BUT I WILL TAKE TONIGHT". PT CONTINUED TO DISCUSS SHE DOES NOT UNDERSTANDING WHY SHE CANNOT GET ATIVAN, TRAMADOL OR SOMETHING THAT WOULD WORK. PT WAS REASSURED AND REMINDED THAT TOGETHER WE TALKED WITH THE HCP AND HE HAD INCREASED HER GABAPENTIN MG AND IT WOULD TAKE A FEW DAYS FOR HER THERAPUTIC LEVEL TO BE ACHIEVED. PT THEN STATED SHE "JUST WANT'S SOMETHING STRONG FOR HER PAIN". PT HAD ZERO DIFFICULTIES DURING MEDICATION ADMINISTRATION; PT STATED "I DON'T KNOW WHY GEMINI EVEN TAKING THIS TYLENOL, IT DOES NOT WORK AT ALL". APPROXIMATELY 2320 PT REPORTED FEELING NAUSEOUS; APPROXIMATELY 2330 4MG ZOFRAN WAS ADMIN. AND PT WAS REPOSITION. DURING 0100 ROUNDS PT WAS RESTING WITH EYES CLOSED, RR EVEN AND NON-LABORED ON RA. APPROXIMATELY 0250 ASSISTED PT WITH CHANGING BRIEF, NOTED YELLOW URINE IN BRIEF, ZERO FOUL ODOR; NO SKIN BREAKDOWN NOTED IN THE CORINNA AREA, PT WAS CLEANED WITH WARM AND CLEAN BRIEF APPLIED. LINENS WERE DRY. PLEASE REFER TO NURSING INTERVENTIONS FOR MORE INFORMATION. ZERO ACUTE DISTRESS NOTED DURING NURSING ROUNDS.
[2019-06-30 06:55] LABS: HEMATOCRIT 31.7 % (37.0-47.0); HEMOGLOBIN 10.3 gm/dL (12.0-15.0); MCH 28.9 pg (26.0-34.0); MCHC 32.6 g/dL (28.0-37.0); MCV 88.8 fL (80.0-100.0); PLATELET COUNT 235 thou/uL (150-400); RBC 3.57 mil/uL (4.20-5.00); RDW 17.9 % (10.5-14.5); WBC 7.9 thou/uL (4.0-11.0)
[2019-06-30 07:15] LABS: ALBUMIN 2.9 g/dL (3.4-5.0); CALCIUM 8.6 mg/dL (8.5-10.1); MAGNESIUM 1.8 mg/dL (1.8-2.4); PHOSPHORUS 3.8 mg/dL (2.5-4.9); POTASSIUM 4.9 mmol/L (3.5-5.1); TOTAL BILIRUBIN 0.2 mg/dL (<0.1-1.0); TOTAL PROTEIN 6.7 g/dL (6.4-8.2)
[2019-06-30 08:57] LABS: ABSOLUTE RETIC COUNT 0.029 10^6/uL; OBSERVED RETIC COUNT 0.8 % (0.6-2.6)
[2019-06-30 09:06] LABS: % SATURATION 16 % (20-39); IRON 45 ug/dL (50-170); TIBC 278 ug/dL (250-450)
[2019-06-30 09:19] VITALS: BP 108/31
--- NOTE | 2019-06-30 09:41 | NUR ---
[facility] denied this pt due to lack of intermodal customer service placement as theirs is full.
[2019-06-30 09:57] LABS: ABSOLUTE NEUTROPHILS 4.6 thou/uL (1.4-8.2); ANISOCYTOSIS 1+
[2019-06-30 10:07] LABS: FOLIC ACID 60.9 ng/mL (8.6-58.9)
[2019-06-30 11:30] VITALS: BP 108/31
--- NOTE | 2019-06-30 11:55 | NUR ---
Violet called and askied Maile Gonzales to revisit this referral and they agreed.
--- NOTE | 2019-06-30 12:01 | NUR ---
CAROLE called Joan and asked if they would reconsider, and they agreed to sherly call back
--- NOTE | 2019-06-30 14:00 | NUR ---
Assumed care 0700. Pt. declined to take her morning meds-meds returned to the [facility]. She requested phone and called her son telling him she was going to soon and for him to take out her money from the bank and use it however he wanted. Son tried to be encouraging with her. At one point she said she had difficulty breathing. At that time she did not appear short of breath, nor was she using her accessory muscles. )2=92% Fingers warm. Skin pale. She declined to be cleaned up a couple of times yet with two staff she was cleaned up three times with incontinent briefs of urine and one large formed BM and two soft stools. She wanted her doctor to see that she was not cleaned up when she initially refused to be cleaned up. She was reminded that staff did not want her to get any bedsores, skin barrier cream applied to bottom-a couple of tiny pink spots were seen and prevention was much better than trying to heal any sores. Another staff came to see her from another unit and reported she was happy yesterday and tearful, angry, depressed like she is today.She was seen by her medical doctor in the AM. She Denies SI/HI/AH/VH.
--- NOTE | 2019-06-30 15:08 | NUR ---
Medicaltesfayeges called and left a VM about this pt, and SW called right back and left a VM. Still uncertain if they are pending.
[2019-06-30 19:35] VITALS: BP 98/52
[2019-06-30 19:46] VITALS: BP 98/52
--- NOTE | 2019-07-01 05:22 | NUR ---
06-30-19 CARE TRANSFERED AT 191; 1929 RECEIVED REPORT FROM LORY SHE WAS CONCERNED ABOUT VS. 1934 PT LYING IN BED WITH EYES CLOSED, TEARFULL AND SAD, MANUAL SET OF VS B/P 98/52 LEFT ARM LYING, P 71 APICAL, T 97.7 AXILLARY, R 22, 02 SAT 98% RA RR EVEN AND NON-LABORED. PT STATED "MY NECK HURTS AND NO ONE CARES, I SHOULD JUST GO ON AND ". WHEN ASKED IF SHE WAS SUICIDAL PT STATED NO, THEN REPORTED THAT NOBODY CARES AND I CAN'T GET ANY PAIN RELIEF FROM THAT DAMN TYLENOL. DURING MEDICATION ADMIN PT HAD ZERO DIFFICUTIES. PT RR 18 EVEN AND NON-LABORED ON RA. NOTED DURING NURSING ROUNDS PT RESTING PEACEFULLY. PLEASE REFER TO NURSING INTERVENTIONS FOR MORE INFORMATION. ZERO ACUTE DISTRESS NOTED DURING NURSING ROUNDS.
[2019-07-01 07:50] VITALS: BP 149/61
--- NOTE | 2019-07-01 09:21 | NUR ---
0700 ASSUMED CARE OF PATIENT AT THAT TIME, PATIENT IN DAYROOM IN [facility]. AT 0830 PATIENT NOTED TO BE CRYING. PATIENT VOICED WANTING TO SHE IS IN PAIN. PATIENT REFUSING TO TAKE MEDICATION AT THIS TIME. PCB DESIGNER ATTEMPTED TO EXPLAIN WHAT MEDICATIONS WERE DUE AND PAIN PATCH WAS AVAILABLE. PATIENT STATED "NOTHING IS HELPING, THEY DON'T HELP ME". PCB DESIGNER ASKED PATIENT MULTIPLE TIMES IN REGARDS TO TAKING MEDS AND PATIENT REFUSED EVERYTIME. PATIENT SITTING AT TABLE. 0905 VICE PRESIDENT QUALITY IMPROVEMENT ALERTED PCB DESIGNER IN REGARDS TO SKIN TEARS ON LEGS X3. PATIENT TO BED AT THAT TIME. PCB DESIGNER TOOK PICTURES OF SKIN TEARS AND CLEANSED AREAS WITH WOUND CLEANSER. AREAS LEFT OPEN TO AIR AT THIS TIME. WILL CONTINUE TO OBSERVE.
[2019-07-01] MEDS ORDERED: DICYCLOMINE HCL20 MG PO (11:07)
[2019-07-01] MEDS ORDERED: IRON325 PO (11:08)
[2019-07-01] MEDS ORDERED: LIPITOR40 MG PO (11:08)
[2019-07-01] MEDS ORDERED: METOPROLOL SUCC25 M1 PO (11:09)
[2019-07-01] MEDS ORDERED: NORVASC10 MG PO (11:13)
[2019-07-01] MEDS ORDERED: CELEBREX 200 M200 M1 PO (11:14)
[2019-07-01] MEDS ORDERED: BENAZEPRIL HCL20 MG PO (11:14)
[2019-07-01] MEDS ORDERED: GABAPENTIN 100100 MG PO (11:15)
[2019-07-01] MEDS ORDERED: LORAZEPAM 0.50.5 MG PO (11:16)
[2019-07-01] MEDS ORDERED: CYMBALTA60 MG PO (11:16)
[2019-07-01] MEDS ORDERED: PEPCID20 MG PO (11:17)
[2019-07-01] MEDS ORDERED: SENNA-TIME S T1 EACH PO (11:17)
[2019-07-01] MEDS ORDERED: COLACE 100 MG100 MG PO (11:17)
[2019-07-01] MEDS ORDERED: TRIPLE ANTIB28.35 GM TOP (11:19)
[2019-07-01] MEDS ORDERED: VITAMIN D325 MCG PO (11:19)
--- NOTE | 2019-07-01 12:22 | NUR ---
RT progress note- At the beginning of this assessment period Sadia had been active in independent leisure pursuits such as coloring and completing word searches. She continues to be needy of staff with various requests. Since the beginning of the week she has become seemingly weak and depressed in mood, not participating per her norm.
--- NOTE | 2019-07-01 13:30 | NUR ---
VIOLET conifrmed that pt was accepted at [facility] . Violet set up d/c for 2pm. Completed a DA 124 C, and faxed the d/c summary and orders. Pt is satisfied with this outcome. Violet treported this to nursing and Dr jewell. Violet made packet and left it on the chart.
--- NOTE | 2019-07-01 15:18 | NUR ---
0940 DR TO PATIENT ROOM AND VIEWED SKIN TEARS TO LE. SKIN TEAR #1 1CM X 3.5CM/ #2 1.5CM X 2 CM/ #3 1.75 CM X .75 CM. 1015 NEOMYCIN OINTMENT APPLIED AND DRESSED WITH OPTIFOAM TO ALL SKIN TEARS. PATIENT NOTED WITH BRUISING TO LOWER EXTRMITIES WELL. PATIENT GIVEN DC INSTRUCTIONS AT 1315. PATIENT VOICED UNDERSTANDING. 1340 ROCEPHIN 1 GM IM GIVEN TO LEFT BUTTOCKS. PATIENT IN WC BACK TO DAYROOM. PATIENT DC'D AT 1445 VIA WC ACCOMPANIED BY STAFF TO VAN TRANSPORT. PATIENT BELONGINGS ACCOMPANIED PATIENT X 5-6 BAGS.
--- NOTE | 2019-07-01 22:53 | D ---
[facility] [place] [address] DISCHARGE SUMMARY Name: JOSE GUADALUPE ORTEGA Room #: 523A-A [facility] IN M.R.#: [id number] Admission: 06/10/19 Attend Phys: David Lovett DO Discharge: 07/01/19 Date of : 42 Report #: [id number] THIS REPORT FOR: cc: ANH - No family physician/PCP FAM - No family physician/PCP David Lovett DO ~ THIS REPORT FOR: //name// CC: David Lovett FAM physician/PCP DATE OF SERVICE: 07/01/2019 PSYCHIATRIC DISCHARGE SUMMARY ATTENDING PHYSICIAN: David Lovett DO. SAW SUPERINTENDENT AT THE TIME OF DISCHARGE: Trevin Dan MD. DISCHARGE DIAGNOSES: Major depressive disorder, single episode, severe degree, modest improvement; mild major neurocognitive disorder, type unspecified. The patient's additional diagnoses unspecified anxiety, urinary tract infection showed Morganella Morganii. She was only compliant with 3 days of Levaquin and one dose of 1 gram of Rocephin IM was given on day of discharge, hypertension, chronic pain syndrome, general debility, GERD, irritable bowel syndrome, hypothyroidism, coronary artery disease, hyperlipidemia, history of stroke. DISCHARGE PLAN: She is discharging for jail stay at [facility], which is on the [facility]. Psychiatric and medical care to be provided by receiving facility. DIET: Regular, Ensure Enlive twice daily. She will require wound care to her legs she has some self-induced lacerations. I have prescribed Neosporin twice a day for 5 days. She also is currently incontinent of bowel, but I believe this can be regained. She needs a shower chair and full assistance for bathing. She is a high fall risk. She has not been ambulatory during this stay. DISCHARGE MEDICATIONS: Folic acid 1 mg p.o. daily; dicyclomine 20 mg oral with meals for cramping and bowel motility; ferrous sulfate 325 mg p.o. daily for supplementation; atorvastatin 40 mg p.o.; metoprolol succinate 25 mg p.o. daily for cardioprotection and hypertension; amlodipine 10 mg p.o. daily for hypertension, hold if systolic blood pressure less than 100; benazepril 20 mg oral daily, hold if blood pressure less than 100; Celebrex 100 mg oral daily at 0900; gabapentin 200 mg oral twice daily; duloxetine 60 mg oral at bedtime for depression and pain; lorazepam 0.5 mg twice every 8 hours as needed for breakthrough anxiety; docusate 100 mg oral twice daily, hold if diarrhea, for [address] [id number] DISCHARGE SUMMARY Name: JOSE GUADALUPE ORTEGA Gabby Room #: 52-A [facility].#: [id number] Admission: 06/10/19 Attend Phys: David Lovett DO Discharge: 07/01/19 Date of : 42 Report #: [id number] bowel motility; senna 2 tablets oral twice daily, hold if diarrhea; famotidine 20 mg oral daily; neomycin; bacitracin; polymyxin ointment 1 gram topical at 0900, 2100 for 5 days; vitamin D3 5000 international units oral daily. LABORATORY DATA: On this admission, a quick review, last CBC was on 06/30/2019 H and H 10.3 and 31.7, white count 7.9, platelet count 235. The H and H was down from 12.8 and 39.7 on 06/26/2019, may be delusional. Her retic count was 0.8 on 06/30/2019. Chemistries: Sodium 139, potassium 4.9, chloride 104, bicarbonate 28, anion gap 7, BUN 35, creatinine 1.0, estimated GFR 54, glucose 94, calcium 8.6, phosphorus 3.8, magnesium 1.8. Iron 45, TIBC 278, percent sat 16, unsaturated IBC 233, ferritin 104. Total bilirubin 0.2, AST 24, ALT 22, alkaline phosphatase 68, total protein 6.7, albumin 2.9. Vitamin B12 of 645, folate high at 60.9. Urinalysis this admission was positive for the Morganella infection. REASON FOR ADMISSION: Back on the , the patient was [facility], which she had been around 29-30 days after a suicidal gesture at [facility]. Apparently, there was a huge number of COVID cases there. Not much was accomplished at it sounds like it was largely penitentiary care and not critical illness. Hospital Course: With us the patient had a waxing and waning course of improving PT and OT then worsening, then some medication refusal, refusal to participate in therapy. She was very angry. She has not been readily accepted into a jail facility. Eventually, we did have success with the [facility] placement on the day of discharge, which was unexpected. She suddenly perked up, improved in her attitude behavior. CONDITION AT DISCHARGE: Stable. PHYSICAL EXAMINATION: A well-developed, nonambulatory, in wheelchair. MENTAL STATUS EXAMINATION: This is a well-developed, ill-appearing, frail female appearing older than stated age. Attention limited. Concentration limited. Speech is normal rate. Thought Process: Linear and goal directed. Thought Content: Focused on discharge. Denied SI or HI. Denied auditory, visual, or tactile hallucinations. Memory not formally tested, but suspect mild major neurocognitive disorder. Insight limited. Judgment fair to limited. Fund of knowledge at least average. PROGNOSIS: For this patient is guarded given some of her attitudes towards rehabilitation and recent hardships. [facility] [address] [place] [address] DISCHARGE SUMMARY Name: JOSE GUADALUPE ORTEGA Gabby Room #: 523A-A [facility] IN ..#: [id number] Admission: 06/10/19 Attend Phys: David Lovett DO Discharge: 07/01/19 Date of : 42 Report #: [id number] 40 minutes spent on discharge activites today. <ELECTRONICALLY SIGNED> By: David Lovett DO 07/01/19 [id number] David Lovett DO /nt
== END 2019-07-01 14:45 | DRG 885 ==
LOC: SBH 22:21
PROVIDERS: Internal Medicine; Nurse Practitioner; ADMIT Psychiatry & Neurology Psychiatry
DX: F33.9 Major depressive disorder, recurrent, unspecified (principal); F01.50 Vascular dementia, unspecified severity, without behavioral disturbance, psychotic disturbance, mood disturbance, and anxiety; R45.851 Suicidal ideations; G93.40 Encephalopathy, unspecified; N39.0 Urinary tract infection, site not specified; F41.1 Generalized anxiety disorder; K21.9 Gastro-esophageal reflux disease without esophagitis; I10 Essential (primary) hypertension; G89.4 Chronic pain syndrome; K58.9 Irritable bowel syndrome, unspecified; E03.9 Hypothyroidism, unspecified; I25.10 Atherosclerotic heart disease of native coronary artery without angina pectoris; E78.5 Hyperlipidemia, unspecified; Z66 Do not resuscitate; M19.012 Primary osteoarthritis, left shoulder; Z81.8 Family history of other mental and behavioral disorders; Z82.3 Family history of stroke; Z82.0 Family history of epilepsy and other diseases of the nervous system
CPT/HCPCS: 10880